=== PATIENT | female | born 1975 | race Caucasian/White ===

== ENCOUNTER 2016-11-17 16:47 | Emergency (ER) | payer MEDICAID ==
[~2016-11-17] VITALS: Ht 149.9 cm; Wt 59.0 kg
[~2016-11-17 16:47] MED LIST: ACYC-114 PO; CARB200T4 PO; CARI350T PO; CIPR500T87 PO; CLON1TAB PO; CLON1TAB23 PO; DIAZ10TA PO; DIAZ5TAB PO; DIAZ5TAB4 PO; DOXE150C PO; EMTR1TAB12 PO; GABA100C8 PO; HYDR-3240 PO; HYDR-3307 PO; IBUP-1222 PO; LEVE500T53 PO; NICO1PAT5 TD; ONDA4TAB7 PO; OXYC5TAB3 PO; PANT40TA3 PO; PHEN100C PO; PHEN125O PO; PHEN50TA4 PO; POLY17PO5 PO; QUET25TA5 PO; QUET400T4 PO; QUET50TA PO; RALT400T PO; SULF1TAB23 PO; TRAM50TA2 PO; TRAZ300T2 PO; ZOLP10TA PO
[2016-11-17 17:09] VITALS: BP 129/85
[2016-11-17] MEDS ORDERED: SODIUM CHLORIDE FLUSH 10ML SYR IVF ONE (17:30)
[2016-11-17] MEDS ORDERED: SODIUM CHLORIDE 0.9% 1,000ML IVBOLUS ONE (17:30)
[2016-11-17] MEDS ORDERED: LORazepam 2 MG/ML, 1ML IVPush ONE (18:00)
[2016-11-17 18:17] LABS: BLOOD UREA NITROGEN 10 mg/dL (7-18)
== END 2016-11-17 19:53 | disposition left against medical advice (07) ==
LOC: ED 18:37
DX: R56.9 Unspecified convulsions (principal); Z53.21 Procedure and treatment not carried out due to patient leaving prior to being seen by health care provider
CPT/HCPCS: 36415; 80048; 82040; 84703; 85025; 99281

== ENCOUNTER 2016-12-09 12:23 | Emergency (ER) | payer MEDICAID ==
[~2016-12-09] VITALS: Ht 147.3 cm; Wt 58.3 kg
[2016-12-09] MEDS ORDERED: DIPHENHYDRAMINE 50 MG/ML, 1ML IVPush ONE (13:30)
[2016-12-09] MEDS ORDERED: SODIUM CHLORIDE 0.9% 1,000ML IVBOLUS ONE (13:30)
[2016-12-09] MEDS ORDERED: SODIUM CHLORIDE FLUSH 10ML SYR IVF ONE (13:30)
[2016-12-09] MEDS ORDERED: PROCHLORPERAZINE 5 MG/ML, 2ML IVPush ONE (13:30)
[2016-12-09] MEDS ORDERED: DIPHENHYDRAMINE 50 MG/ML, 1ML ONE (14:02)
[2016-12-09] MEDS ORDERED: PROCHLORPERAZINE 5 MG/ML, 2ML ONE (14:02)
[2016-12-09 14:17] LABS: ASPARTATE AMINO TRANSFERASE 24 U/L (15-37); BLOOD UREA NITROGEN 10 mg/dL (7-18); C-REACTIVE PROTEIN, QUANT 0.09 mg/dL (0.02-0.49)
[2016-12-09 14:56] VITALS: BP 127/90
== END 2016-12-09 15:44 | disposition home or self-care (01) ==
LOC: ED 14:16
DX: G44.219 Episodic tension-type headache, not intractable (principal); I25.2 Old myocardial infarction; Z90.410 Acquired total absence of pancreas; I10 Essential (primary) hypertension
CPT/HCPCS: 36415; 80053; 85025; 85651; 86140; 93005; 96374; 96375; 99285; J0780; J1200; J7030

== ENCOUNTER 2016-12-26 15:51 | Emergency (ER) | payer MEDICAID ==
[~2016-12-26] VITALS: Ht 149.9 cm; Wt 56.7 kg
[~2016-12-26 15:51] MED LIST changes: +GABA-826 PO; -GABA100C8 PO
[2016-12-26] MEDS ORDERED: SODIUM CHLORIDE FLUSH 10ML SYR IVF ONE (17:00)
[2016-12-26] MEDS ORDERED: SODIUM CHLORIDE 0.9% 1,000ML IVBOLUS ONE (17:00)
[2016-12-26 17:23] LABS: ASPARTATE AMINO TRANSFERASE 33 U/L (15-37); BLOOD UREA NITROGEN 13 mg/dL (7-18)
[2016-12-26] MEDS ORDERED: ONDANSETRON 2MG/ML, 2ML ONE ×2 (17:46→19:51)
[2016-12-26] MEDS ORDERED: HYDROmorphone 1 MG/ML, 1ML ONE ×2 (17:46→19:51)
[2016-12-26] MEDS: HYDROmorphone 1 MG/ML, 1ML IVPush PRN ×2 (17:52→19:55)
[2016-12-26] MEDS ORDERED: ONDANSETRON 2MG/ML, 2ML IVPush ONE (18:30)
[2016-12-26 19:33] VITALS: BP 127/90
[2016-12-26 19:48] LABS: HCG UR OBC PASS
[2016-12-26] MEDS ORDERED: ONDANSETRON 2MG/ML, 2ML IVPush PRN (20:00)
[2016-12-26] MEDS ORDERED: OMNIPAQUE 350 MG/ML, 100ML BOTTLE ONE (20:18)
== END 2016-12-26 20:39 | disposition home or self-care (01) ==
LOC: ED 16:48
DX: R10.31 Right lower quadrant pain (principal); R11.2 Nausea with vomiting, unspecified; I10 Essential (primary) hypertension; Z90.49 Acquired absence of other specified parts of digestive tract; Z90.710 Acquired absence of both cervix and uterus; Z87.891 Personal history of nicotine dependence; Z85.41 Personal history of malignant neoplasm of cervix uteri
CPT/HCPCS: 36415; 74177; 80053; 81003; 81025; 83690; 84703; 85025; 85610; 96361; 96374; 96375; 96376; 99285; J1170; J2405; J7030; Q9967

== ENCOUNTER 2019-02-21 07:03 | Emergency (ER) | payer MEDICAID ==
[~2019-02-21] VITALS: Ht 149.9 cm; Wt 53.0 kg
[2019-02-21 10:09] VITALS: BP 110/68
== END 2019-02-21 12:08 | disposition home or self-care (01) ==
LOC: ED 07:56
DX: R10.31 Right lower quadrant pain (principal); R94.5 Abnormal results of liver function studies; R74.0 Nonspecific elevation of levels of transaminase and lactic acid dehydrogenase [LDH]; I10 Essential (primary) hypertension; Z86.73 Personal history of transient ischemic attack (TIA), and cerebral infarction without residual deficits; G40.909 Epilepsy, unspecified, not intractable, without status epilepticus; Z21 Asymptomatic human immunodeficiency virus [HIV] infection status; I25.2 Old myocardial infarction; Z90.710 Acquired absence of both cervix and uterus; Z90.49 Acquired absence of other specified parts of digestive tract
CPT/HCPCS: 36415; 74177; 80053; 80074; 81001; 83690; 85025; 87077; 87086; 87186; 96374; 96375; 96376; 99284; J1170; J2405; Q9967